=== PATIENT | female | born 1975 | race Caucasian/White ===

== ENCOUNTER 2021-01-20 01:41 | Observation (INO) ==
[2021-01-20] MEDS ORDERED: Naloxone 0.4 MG/ML INJ IVP PRN (07:14)
[2021-01-20] MEDS ORDERED: Ondansetron 4 MG/2 ML VIAL IVP PRN (07:14)
[2021-01-20] MEDS ORDERED: Acetaminophen 325 MG TABLET PO PRN (07:14)
[2021-01-20] MEDS ORDERED: Levothyroxine Sodium 100 MCG VIAL IVP ONE (08:36)
[2021-01-20] MEDS: *HR* OxyCODONE/APAP 5/325 TABLET PO PRN ×2 (09:56→20:19)
[2021-01-20 09:59] LABS: Basophils # 0.1 K/mcL (0.0-0.2); Hematocrit 27.1 % (35.3-44.9); Hemoglobin 7.7 g/dL (11.5-15.4); Mean Corpuscular HGB Conc 28.4 g/dL (31.6-35.5); Mean Corpuscular Hemoglobin 22.3 pg (28.0-33.3); Mean Corpuscular Volume 78.3 fL (83.0-100.0); Mean Platelet Volume 9.5 fL (9.4-12.4); Platelet Count 385 K/mcL (140-400); Red Blood Count 3.46 M/mcL (3.82-4.97); Red Cell Distribution Width 20.1 % (11.5-14.5); White Blood Count 5.9 K/mcL (4.3-11.1)
[2021-01-20 10:06] LABS: Prothrombin Time 12.1 Seconds (9.4-12.1)
[2021-01-20 10:16] LABS: BUN/Creatinine Ratio 13 (6-26); Blood Urea Nitrogen 14 mg/dL (6-20); Calcium 9.3 mg/dL (8.6-10.3); Carbon Dioxide 27 mEq/L (23-29); Chloride 105 mEq/L (98-107); Glucose 89 mg/dL (70-105); Magnesium 2.2 mg/dL (1.6-2.6); Osmolality,Calculated 282 (280-300); Potassium 3.6 mEq/L (3.5-5.1); Sodium 136 mEq/L (136-145); eGFR For African Americans > 60 (> 60); eGFR For Non-African Americans 55 (> 60)
[2021-01-20 10:23] LABS: Hypochromasia Present (Not Present); Lymphocytes # 1.4 K/mcL (0.6-4.6); Monocytes # 0.5 K/mcL (0.0-1.3); Neutrophils # 3.9 K/mcL (1.6-8.9); Platelet Estimate Normal (Normal)
[2021-01-20 10:24] LABS: Poikilocytosis 1+ (Not Present)
[2021-01-20] MEDS ORDERED: Iron Sucrose Complex 200 MG in 0.9 % Sodium Chloride 100 ML IVPB ONE (10:45)
[2021-01-20 14:09] LABS: Amorphous Sediment,Urine Few per hpf (None-Few); Bilirubin,Urine Negative (Negative); Blood,Urine Negative (Negative); Clarity,Urine Turbid (Clear); Color,Urine Yellow (Yellow); Glucose,Urine (UA) Normal (Normal); Ketones,Urine Negative (Negative); Leukocyte Esterase,Urine Negative (Negative); Mucus,Urine Few per lpf (None-Few); Nitrite,Urine Negative (Negative); PH,Urine 6.5 pH Units (5.0-8.0); Protein,Urine Trace mg/dL (Neg-Trace); RBC,Urine 0-3 per hpf (0-3); Squamous Epithelial Cell,Urine Moderate per hpf (None-Few); Transitional Epi Cells,Urine Few per hpf (None-Few); Urobilinogen,Urine Normal (Normal)
[2021-01-20 15:11] LABS: Amphetamine Screen,Urine Positive ng/mL (Cutoff=1000); Barbiturate Screen,Urine Negative ng/mL (Cutoff=200); Benzodiazepines Screen,Urine Negative ng/mL (Cutoff=200); Cannabinoid Screen,Urine Positive ng/mL (Cutoff = 50); Cocaine Screen,Urine Negative ng/mL (Cutoff= 300); Opiate Screen,Urine Negative ng/mL (Cutoff=300); Phencyclidine Screen,Urine Negative ng/mL (Cutoff=25)
[2021-01-21 06:21] LABS: Hemoglobin 7.8 g/dL (11.5-15.4); Immature Granulocytes % 0.5 % (0-4)
[2021-01-21 06:23] LABS: Basophils # 0.1 K/mcL (0.0-0.2); Eosinophils # 0.2 K/mcL (0.0-0.6); Eosinophils % 3.4 %; Hematocrit 27.3 % (35.3-44.9); Lymphocytes # 2.2 K/mcL (0.6-4.6); Lymphocytes % 33.7 %; Mean Corpuscular HGB Conc 28.6 g/dL (31.6-35.5); Mean Corpuscular Hemoglobin 22.5 pg (28.0-33.3); Mean Corpuscular Volume 78.7 fL (83.0-100.0); Mean Platelet Volume 9.8 fL (9.4-12.4); Monocytes # 0.5 K/mcL (0.0-1.3); Neutrophils # 3.4 K/mcL (1.6-8.9); Platelet Count 364 K/mcL (140-400); Red Blood Count 3.47 M/mcL (3.82-4.97); Red Cell Distribution Width 20.3 % (11.5-14.5); Segmented Neutrophils % 52.4 %; White Blood Count 6.5 K/mcL (4.3-11.1)
[2021-01-21 06:25] LABS: Anisocytosis 1+ (Not Present); Hypochromasia Present (Not Present); Platelet Estimate Normal (Normal)
[2021-01-21 06:44] LABS: Albumin/Globulin Ratio 1.4 (1.1-2.2); Bilirubin,Indirect 0.2 mg/dL (0.0-1.0); Bilirubin,Total 0.2 mg/dL (0.3-1.0); Globulin 2.9 g/dL (2.4-3.5); Total Protein 6.9 g/dL (6.4-8.9)
[2021-01-21 07:06] LABS: Folate 11.4 ng/mL (3.0-16.0)
[2021-01-21] MEDS: *HR* OxyCODONE/APAP 5/325 TABLET PO PRN ×2 (08:26→19:33)
[2021-01-21 10:47] LABS: BUN/Creatinine Ratio 14 (6-26); Blood Urea Nitrogen 18 mg/dL (6-20); Calcium 9.2 mg/dL (8.6-10.3); Carbon Dioxide 26 mEq/L (23-29); Chloride 100 mEq/L (98-107); Glucose 102 mg/dL (70-105); Magnesium 1.9 mg/dL (1.6-2.6); Osmolality,Calculated 282 (280-300); Potassium 3.6 mEq/L (3.5-5.1); Sodium 135 mEq/L (136-145); eGFR For African Americans 53 (> 60); eGFR For Non-African Americans 44 (> 60)
[2021-01-21 12:51] LABS: Thyroid Stimulating Hormone 227.279 mcIU/mL (0.340-5.600); Triiodothyronine (T3) Free 1.78 pg/mL (2.50-3.90)
[2021-01-22] MEDS: *HR* OxyCODONE/APAP 5/325 TABLET PO PRN ×2 (00:30→09:45)
[2021-01-22 07:13] LABS: Mean Platelet Volume 9.8 fL (9.4-12.4)
[2021-01-22 07:14] LABS: Hemoglobin 7.4 g/dL (11.5-15.4); Mean Corpuscular HGB Conc 27.4 g/dL (31.6-35.5); Mean Corpuscular Hemoglobin 21.8 pg (28.0-33.3); Mean Corpuscular Volume 79.4 fL (83.0-100.0); Monocytes # 0.4 K/mcL (0.0-1.3); Neutrophils # 3.2 K/mcL (1.6-8.9); Platelet Count 365 K/mcL (140-400); Red Cell Distribution Width 20.1 % (11.5-14.5); White Blood Count 6.7 K/mcL (4.3-11.1)
[2021-01-22 07:33] LABS: Magnesium 1.9 mg/dL (1.6-2.6); Potassium 4.1 mEq/L (3.5-5.1)
[2021-01-22 08:35] LABS: Eosinophils # 0.1 K/mcL (0.0-0.6); Hypochromasia Present (Not Present); Platelet Estimate Normal (Normal)
[2021-01-22 08:36] LABS: Anisocytosis 1+ (Not Present); Poikilocytosis 1+ (Not Present)
[2021-01-22 11:20] VITALS: BP 99/67; PULSE 60; TEMP 97.9; O2SAT 94
== END 2021-01-22 16:24 | disposition home or self-care (01) ==
LOC: EMEROOARM 01:41 → CDU 01:41 → SUATTDRO 07:06 → CDU 08:22 → 3BNU 15:40
PROVIDERS: ADMIT Pharmacist; ATTEND Registered Nurse